=== PATIENT | female | born 1945 | race Caucasian/White ===

== ENCOUNTER → 2023-06-15 10:11 | Outpatient (REF) | payer MEDICARE, OTHER, SELFPAY ==
[2023-06-15 11:22] LABS: HDL Cholesterol 55 mg/dl; LDL Cholesterol, Calculated 86 mg/dl; Total Cholesterol 177 mg/dl (50-199); Triglyceride 183 mg/dl (10-149); Very Low Density Lipoprotein 36 mg/dl (0-30)
== END ==
LOC: WDC 10:11
PROVIDERS: ATTENDING PHYSICIAN Family Medicine; REFERRING PHYSICIAN Internal Medicine
DX: Z12.31 Encounter for screening mammogram for malignant neoplasm of breast (principal); Z86.79 Personal history of other diseases of the circulatory system; I10 Essential (primary) hypertension
CPT/HCPCS: 36415; 77063; 77067; 80061

== ENCOUNTER → 2023-08-31 13:41 | Outpatient (REF) | payer MEDICARE, OTHER, SELFPAY ==
[2023-08-31 15:02] LABS: Hematocrit 44.6 % (37.0-47.0); Hemoglobin 13.9 g/dL (12.0-16.0)
[2023-08-31 15:36] LABS: Protein/creatinine Ratio 0.1; Urine Protein 7 mg/dl
[2023-08-31 15:37] LABS: Albumin 4.2 g/dl (3.5-5.0); Blood Urea Nitrogen 32 mg/dl (7-17); Calcium 9.2 mg/dl (8.4-10.2); Carbon Dioxide 30 mmol/L (22-30); Chloride 102 mmol/L (98-107); Glucose 141 mg/dl (70-99); Phosphorus 4.1 mg/dl (2.5-4.5); Potassium 4.6 mmol/L (3.5-5.1); Sodium 138 mmol/L (135-145); eGFR 38.99
[2023-08-31 15:46] LABS: Intact PTH 39.8 pg/ml (13.6-85.8)
== END ==
LOC: REG 13:41
PROVIDERS: ATTENDING PHYSICIAN Specialist; FAMILY PHYSICIAN Family Medicine
DX: N18.32 Chronic kidney disease, stage 3b (principal)
CPT/HCPCS: 36415; 80069; 82570; 83970; 84156; 85014; 85018

== ENCOUNTER → 2023-12-21 10:57 | Outpatient (REF) | payer MEDICARE, OTHER, SELFPAY ==
[2023-12-21 13:36] LABS: Free T4 1.13 ng/dl (0.78-2.19)
[2023-12-21 13:49] LABS: TSH 2.64 uIU/ml (0.47-4.68)
[2023-12-21 14:24] LABS: Glycohemoglobin (HgbA1c) 5.5 % (4.0-5.6)
== END ==
LOC: RAD 10:57
PROVIDERS: ATTENDING PHYSICIAN Family Medicine
DX: M85.9 Disorder of bone density and structure, unspecified (principal); N95.9 Unspecified menopausal and perimenopausal disorder; Z13.820 Encounter for screening for osteoporosis; E03.9 Hypothyroidism, unspecified; R73.09 Other abnormal glucose
CPT/HCPCS: 77080; 83036; 84439; 84443

== ENCOUNTER → 2024-03-29 13:51 | Outpatient (REF) | payer MEDICARE, OTHER, SELFPAY ==
[2024-03-29 14:34] LABS: % Basophils 1.2 % (0-2); % Eosinophils 3.8 % (0-6); % Immature Granulocytes 0.2 % (0-0.5); % Lymphocytes 25.1 % (20.5-51.1); % Monocytes 7.7 % (1.7-9.3); Absolute Basophils 0.1 10^3/uL (0-0.2); Absolute Eosinophils 0.2 10^3/uL (0-0.7); Absolute Lymphocytes 1.3 10^3/uL (1.2-3.4); Absolute Monocytes 0.4 10^3/uL (0.1-0.6); Absolute Neutrophils 3.2 10^3/uL (1.4-6.5); Hematocrit 42.5 % (37.0-47.0); Hemoglobin 13.5 g/dL (12.0-16.0); Mean Corp Hgb Conc. 31.8 g/dL (33.0-37.0); Mean Corpuscular Volume 100.7 fL (81.0-99.0); Mean Platelet Volume 8.8 fL (7.4-10.4); Nucleated Red Blood Cells % 0 %; Platelet Count 280 10^3/uL (130-400); Red Blood Cell Count 4.22 10^6/uL (4.20-5.40); Red Cell Dist. Width 13.6 % (11.5-14.5); Reticulocyte Count 2.2 % (0.4-2.8); White Blood Cell Count 5.2 10^3/uL (4.8-10.8)
[2024-03-29 14:58] LABS: Blood Urea Nitrogen 23 mg/dl (7-17); Calcium 8.8 mg/dl (8.4-10.2); Calcium 9.2 mg/dl (8.4-10.2); Carbon Dioxide 32 mmol/L (22-30); Chloride 100 mmol/L (98-107); Glucose 128 mg/dl (70-99); Iron 124 ug/dl (37-170); Phosphorus 3.4 mg/dl (2.5-4.5); Potassium 4.6 mmol/L (3.5-5.1); Sodium 138 mmol/L (135-145); eGFR 38.99
[2024-03-29 15:08] LABS: Percent Saturation 46 % (20-50); Total Iron Binding Capacity 268 ug/dl (265-497)
[2024-03-29 16:06] LABS: Folate > 20.0 ng/ml (2.76-20); Vitamin B12 > 1000 pg/ml (239-931)
[2024-03-30 13:53] LABS: Intact PTH 21.2 pg/ml (13.6-85.8)
== END ==
LOC: REG 13:51
PROVIDERS: ATTENDING PHYSICIAN Specialist; FAMILY PHYSICIAN Family Medicine
DX: Z76.89 Persons encountering health services in other specified circumstances (principal); E61.1 Iron deficiency; N18.32 Chronic kidney disease, stage 3b; E53.8 Deficiency of other specified B group vitamins
CPT/HCPCS: 36415; 80069; 82607; 82728; 82746; 83540; 83550; 83970; 85025; 85045

== ENCOUNTER → 2024-09-24 13:50 | Outpatient (REF) | payer MEDICARE, OTHER, SELFPAY ==
[2024-09-24 14:40] LABS: Hematocrit 45.4 % (37.0-47.0); Hemoglobin 14.1 g/dL (12.0-16.0); Mean Corp Hgb Conc. 31.1 g/dL (33.0-37.0); Mean Corpuscular Volume 100.4 fL (81.0-99.0); Nucleated Red Blood Cells % 0 %; Platelet Count 310 10^3/uL (130-400); Red Cell Dist. Width 13.3 % (11.5-14.5)
[2024-09-24 14:56] LABS: Urine Character Clear (Clear)
[2024-09-24 15:12] LABS: Urine Red Blood Cell 0-2 /HPF (0-2)
[2024-09-24 15:17] LABS: ALT (SGPT) 24 U/L (0-35); AST (SGOT) 29 U/L (14-36); Albumin 4.1 g/dl (3.5-5.0); Alkaline Phosphatase 131 U/L (38-126); Blood Urea Nitrogen 23 mg/dl (7-17); Calcium 9.0 mg/dl (8.4-10.2); Carbon Dioxide 33 mmol/L (22-30); Chloride 100 mmol/L (98-107); Glucose 102 mg/dl (70-99); HDL Cholesterol 62 mg/dl; Iron 128 ug/dl (37-170); LDL Cholesterol, Calculated 114 mg/dl; Potassium 4.6 mmol/L (3.5-5.1); Sodium 137 mmol/L (135-145); Total Protein 7.7 g/dl (6.3-8.2); Very Low Density Lipoprotein 47 mg/dl (0-30); eGFR 38.75
[2024-09-24 15:19] LABS: Microalb - Urine Creatinine 92.100 mg/dl
[2024-09-24 15:24] LABS: Microalbumin, Random Urine 0.7 mg/dl (0.6-1.7)
[2024-09-24 15:34] LABS: TSH 0.04 uIU/ml (0.47-4.68)
[2024-09-24 15:53] LABS: Vitamin B12 322 pg/ml (239-931)
[2024-09-25 10:16] LABS: Glycohemoglobin (HgbA1c) 5.7 % (4.0-5.6)
== END ==
LOC: REG 13:50
PROVIDERS: ATTENDING PHYSICIAN Specialist; FAMILY PHYSICIAN Family Medicine
DX: N18.32 Chronic kidney disease, stage 3b (principal); E78.2 Mixed hyperlipidemia; R73.09 Other abnormal glucose; E61.1 Iron deficiency; E53.8 Deficiency of other specified B group vitamins
CPT/HCPCS: 36415; 80053; 80061; 81003; 81015; 82043; 82570; 82607; 82652; 83036; 83540; 83970; 84100; 84156; 84439; 84443; 85025

== ENCOUNTER → 2024-12-13 14:58 | Outpatient (REF) | payer MEDICARE, OTHER, SELFPAY | LOC: RCS 14:58 | PROVIDERS: ATTENDING PHYSICIAN Internal Medicine; FAMILY PHYSICIAN Family Medicine | DX: Z95.2 Presence of prosthetic heart valve (principal) | CPT/HCPCS: 93306 ==